=== PATIENT | female | born 1985 ===

== ENCOUNTER 2017-05-30 17:34 | Emergency (ER) | payer OTHER ==
[2017-05-30] MEDS ORDERED: Sodium Chloride 0.9% 1,000 ML IV ONE (18:42)
[2017-05-30 19:21] LABS: BASO # 0.1 K/uL (0.0-0.2); BASO % 0.7 % (0.0-2.0); EOS # 0.1 K/uL (0.0-0.7); EOS % 0.6 % (0.0-4.0); HEMOGLOBIN 12.5 g/dL (11.0-16.0); LYMPH # 2.3 K/uL (1.0-4.3); LYMPH % 19.4 % (20.0-40.0); MEAN CORPUSCULAR HGB CONC 33.3 g/dL (33.0-37.0); MEAN PLATELET VOLUME 8.9 fL (7.2-11.7); MONO # 0.7 K/uL (0.0-0.8); MONO % 5.9 % (0.0-10.0); NEUT # 8.8 K/uL (1.8-7.0); NEUT % 73.4 % (50.0-75.0); RBC 4.3 Mil/uL (3.80-5.20); RED CELL DISTRIBUTION WIDTH 13.2 % (11.5-14.5)
[2017-05-30] MEDS ORDERED: Sodium Chloride 0.9% 1,000 ML ONE (19:21)
[2017-05-30 19:28] LABS: ALBUMIN 4.4 g/dL (3.5-5.0); PROTHROMBIN TIME 11.8 SECONDS (9.7-12.2)
[2017-05-30 19:31] LABS: AST/SGOT 19 U/L (14-36); GFR AFRICAN-AMERICAN > 60; GFR NON-AFRICAN AMERICAN > 60
[2017-05-30 19:32] LABS: ALB/GLOB RATIO 1.2 (1.0-2.1); ALT/SGPT 32 U/L (9-52); BLOOD UREA NITROGEN 12 mg/dL (7-17); CALCIUM 9.3 mg/dl (8.6-10.4); LIPASE 40 U/L (23-300)
[2017-05-30 19:46] LABS: HCG,QUALITATIVE URINE NEGATIVE (NEGATIVE)
[2017-05-30 19:47] LABS: SQUAMOUS EPITHIAL 1 /hpf (0-5); URINE BILIRUBIN NEGATIVE (NEGATIVE); URINE BLOOD NEGATIVE (NEGATIVE); URINE CLARITY Clear (Clear); URINE COLOR Yellow (YELLOW); URINE GLUCOSE (UA) NORMAL (Normal); URINE LEUKOCYTE ESTERASE NEG Leu/uL (Negative); URINE NITRATE NEGATIVE (NEGATIVE); URINE PROTEIN NEGATIVE (NEGATIVE); URINE UROBILINOGEN NORMAL mg/dL (0.2-1.0)
[2017-05-30 20:09] VITALS: BP 93/62; PULSE 82; RESP 18; TEMP 98.3; O2SAT 100
--- NOTE | 2017-05-30 21:00 | C.PDOC ---
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 Limitations: language barrier Onset/Duration Of Symptoms: Other (today) Current Symptoms Are (Timing): Better Number Of Bleeding Episodes: One Amount of Blood Loss: Small Severity: Moderate Quality Of Discomfort: "Pain" Associated Symptoms: Hematemesis (x1) Modifying Factors: None Additional History Per: Prior Records Past Medical History Reviewed: Historical Data, Nursing Documentation, Vital Signs Vital Signs: Last Vital Signs Temp 98.3 F 05/30/17 20:08 Pulse 82 05/30/17 20:08 Resp 18 05/30/17 20:08 BP 93/62 L 05/30/17 20:08 Pulse Ox 100 05/30/17 20:08 - Medical History PMH: Gastritis Surgical History: No Surg Hx Family History: States: Unknown Family Hx - Social History Hx Alcohol Use: Yes Hx Substance Use: No - Immunization History Hx Tetanus Toxoid Vaccination: No Hx Influenza Vaccination: Yes Hx Pneumococcal Vaccination: No Review Of Systems Except As Marked, All Systems Reviewed And Found Negative. Constitutional: Negative for: Fever, Weakness Cardiovascular: Negative for: Chest Pain, Light Headedness Respiratory: Negative for: Shortness of Breath Gastrointestinal: Positive for: Abdominal Pain (epigastric, for about 1 week). Negative for: Diarrhea Musculoskeletal: Negative for: Neck Pain Skin: Negative for: Rash Neurological: Negative for: Weakness, Numbness, Seizures, Altered Mental Status Physical Exam - Physical Exam Appears: Non-toxic, No Acute Distress Skin: Normal Color, Warm, Dry, No Rash Head: Atraumatic, Normacephalic Eye(s): bilateral: Normal Inspection, PERRL, EOMI Oral Mucosa: Moist Neck: Normal ROM, Supple Cardiovascular: Rhythm Regular Respiratory: Normal Breath Sounds, No Accessory Muscle Use Gastrointestinal/Abdominal: Soft, Tenderness (mild epigastric), No Guarding, No Rebound Rectal: Rectal Tone (wnl), Heme Positive, No Mass, Other (brown stool) Back: No CVA Tenderness Extremity: Normal ROM Neurological/Psych: Oriented x3, Normal Motor, Normal Sensation ED Course And Treatment - Laboratory Results Result Diagrams: 05/30/17 19:18 05/30/17 19:18 Lab Interpretation: No Acute Changes Urine POC: Negative O2 Sat by Pulse Oximetry: 100 Pulse Ox Interpretation: Normal Progress Note: Pt is feeling much better. No abdominal pain. Pt states she has a [facility] to follow up with. Reassessment Condition: Improved Progress - Interventions Interventions:: Observation, Intravenous fluid - Medications Administered Intravenous: Antiemetic, Other (PPI) - Data Reviewed Data Reviewed: Lab, Old records - Patient Status Patient status: Mostly improved - Continuity of Care Discussed patient case with:: Patient, ED Nurse - Patient Plan Patient Plan: Discharge, F/U with PCP Disposition Counseled Patient/Family Regarding: Studies Performed, Diagnosis, Need For Followup, Rx Given - Disposition Disposition: HOME/ ROUTINE Disposition Time: 21:02 Condition: IMPROVED Additional Instructions: Follow up with your [facility] within 1 week for further evaluation and treatment, including an upper endoscopy. Return to the ER if you vomit blood, develop black or bloody stool, dizziness, worsening of symptoms or if you have any other concerns. Prescriptions: Pantoprazole Sodium [Protonix] 40 mg PO DAILY #14 ect Instructions: Gastritis (ED), Diet for Ulcers and Gastritis (ED) Print Language: MALAWIAN - Clinical Impression Clinical Impression: Abdominal pain, History of hematemesis
== END 2017-05-30 21:24 | disposition home or self-care (01) ==
LOC: C.ER 17:34
DX: R10.13 Epigastric pain (principal); Z87.898 Personal history of other specified conditions
CPT/HCPCS: 80053; 81001; 83690; 84703; 85025; 85610; 85730; 96361; 96374; 96375; 99285; C9113; G0328; J2765; J7040

== ENCOUNTER 2017-06-10 14:42 | Emergency (ER) | payer OTHER ==
[2017-06-10 14:52] VITALS: PULSE 77; RESP 20
[2017-06-10] MEDS ORDERED: Sodium Chloride 0.9% 500 ML IV ONE ×2 (15:36→15:49)
--- NOTE | 2017-06-10 15:41 | C.PDOC ---
History Of Present Illness 32 y/o female presents to emergency department for reevaluation of epigastric pain x1 week. Pain is intermittent, localized and worse with food intake. Pt seen here 1 week ago for same, prescribed medication but patient states the medication nut tapper her a headache. Pt denies fever, chills, worse headache of life , dizziness, CP, SOB, dyspnea, palpitation, vomiting, hematemesis, diarrhea, urinary symptoms or any other complaints. Pt admits, has scheduled GI appointment for 08/2017. Time Seen by Provider: 06/10/17 15:27 Chief Complaint (Nursing): Abdominal Pain History Per: Patient History/Exam Limitations: no limitations Onset/Duration Of Symptoms: Days Current Symptoms Are (Timing): Still Present Severity: Moderate Location Of Pain/Discomfort: Epigastric Radiation Of Pain To:: None Quality Of Discomfort: "Pain" Associated Symptoms: denies: Fever, Chills, Nausea, Vomiting, Diarrhea, Chest Pain, Urinary Symptoms Exacerbating Factors: Food Recent travel outside of the [place]: No Past Medical History Reviewed: Historical Data, Nursing Documentation, Vital Signs Vital Signs: Last Vital Signs Temp 98.7 F 06/10/17 17:33 Pulse 77 06/10/17 17:33 Resp 20 06/10/17 17:33 BP 100/67 06/10/17 17:33 Pulse Ox 98 06/10/17 17:42 - Medical History PMH: Gastritis Family History: States: Unknown Family Hx - Social History Hx Alcohol Use: Yes Hx Substance Use: No - Immunization History Hx Tetanus Toxoid Vaccination: No Hx Influenza Vaccination: Yes Hx Pneumococcal Vaccination: No Review Of Systems Except As Marked, All Systems Reviewed And Found Negative. Constitutional: Negative for: Fever, Chills Cardiovascular: Negative for: Chest Pain Respiratory: Negative for: Shortness of Breath Gastrointestinal: Positive for: Abdominal Pain. Negative for: Nausea, Vomiting , Diarrhea Genitourinary: Negative for: Dysuria, Hematuria Musculoskeletal: Negative for: Back Pain Physical Exam - Physical Exam Appears: Well, Non-toxic, No Acute Distress Skin: Warm, Dry, No Rash Eye(s): bilateral: PERRL Nose: No Flaring Oral Mucosa: Moist, No Drooling Throat: No Erythema, No Drooling Neck: Supple, Other ((-) carotid bruits) Cardiovascular: Rhythm Regular, No Friction Rub, No Murmur, No JVD Respiratory: No Decreased Breath Sounds, No Accessory Muscle Use, No Rales, No Rhonchi, No Stridor, No Wheezing Gastrointestinal/Abdominal: Soft, Tenderness (mild epigastric/RUQ), No Guarding , No Rebound Extremity: Normal ROM, No Pedal Edema Extremity: Bilateral: Atraumatic Neurological/Psych: Oriented x3, Normal Speech, Normal Cognition ED Course And Treatment - Laboratory Results Result Diagrams: 06/10/17 15:48 06/10/17 15:48 Lab Interpretation: No Acute Changes O2 Sat by Pulse Oximetry: 98 (room air) Pulse Ox Interpretation: Normal - CT Scan/US Gallbladder US Other Rad Studies (CT/US): Radiology Report Reviewed CT/US Interpretation: Accession No. : [id number]. Patient Name / ID : JANES LERMA / [id number]. Exam Date : 06/10/2017 16:44:34 ( Approved ) . Study Comment : Sex / Age : F / 32Y. Creator : Brie Lopez MD. 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 Approver2 : Report Date : 06/10/2017 17:20:41. My Comment : . HISTORY: RUQ pain. COMPARISON: None available. TECHNIQUE: Sonographic evaluation of the right upper quadrant of the abdomen. FINDINGS: LIVER: Measures 17.3 cm in length. Echogenic 3.4 x 3.1 x 3.1 cm lesion, indeterminate. The main portal vein appears patent with normal directional flow. No intrahepatic bile duct dilatation. GALLBLADDER: No gallstones. No gallbladder wall thickening or pericholecystic edema. Negative sonographic Gardner's sign as assessed by the match maker. COMMON BILE DUCT: Measures 3 mm. PANCREAS: Not well- visualized. RIGHT KIDNEY: Measures 11.0 x 3.8 x 4.8 cm. No obstructing calculus or hydronephrosis identified. AORTA: Limited visualization appears grossly unremarkable. IVC: Limited visualization appears grossly unremarkable. OTHER FINDINGS: None . IMPRESSION: Indeterminate 3.4 x 3.1 x 3.1 cm echogenic hepatic lesion, right lobe. Recommend dedicated cross- sectional imaging for further characterization. Progress Note: Plan: labs, US gallbladder, IV fluids, pepcid, carafate. On re- evaluation, pt is afebrile, hemodynamicaly stable. non-toxic. PulseOx 98% rA. ENT: no acute findings. Neck: Supple. CVS: (+)S1S2, reg. Lungs: CTA B/L, BS equal B/L. Abd: benign, (-) guarding, (-) rebound. back: (-) CVA tenderness. Blood work, UA- noraml. Imaging results review and accidental findings noted. results review and discussed with pt. ref. to fu with GI in 1- 2 days for re-eavl. return to Ed if any worsening or new changes. Disposition Counseled Patient/Family Regarding: Studies Performed, Diagnosis, Need For Followup, Rx Given - Disposition Referrals: [facility] [Outside] [facility] [Outside] Shivam Lomeli MD [Staff Provider] - Disposition: HOME/ ROUTINE Disposition Time: 17:25 Condition: STABLE Additional Instructions: Follow up with GI in 2-3days for re-evacuation. Diet restriction return to ED if any worsening or new changes. 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 - Scribe Statement The provider has reviewed the documentation as recorded by the Scribe Ramsey Castañeda All medical record entries made by the Maikel were at my direction and personally dictated by me. I have reviewed the chart and agree that the record accurately reflects my personal performance of the history, physical exam, medical decision making, and the department course for this patient. I have also personally directed, reviewed, and agree with the discharge instructions and disposition.
[2017-06-10 15:53] LABS: BASO # 0.1 K/uL (0.0-0.2); BASO % 0.7 % (0.0-2.0); EOS # 0.1 K/uL (0.0-0.7); EOS % 1.1 % (0.0-4.0); HEMOGLOBIN 12.1 g/dL (11.0-16.0); LYMPH # 2.7 K/uL (1.0-4.3); MEAN CELL VOLUME 87.2 fL (81.0-99.0); MEAN CORPUSCULAR HEMOGLOBIN 29.5 pg (27.0-31.0); MEAN CORPUSCULAR HGB CONC 33.8 g/dL (33.0-37.0); MEAN PLATELET VOLUME 8.9 fL (7.2-11.7); MONO # 0.6 K/uL (0.0-0.8); MONO % 6.7 % (0.0-10.0); NEUT # 4.9 K/uL (1.8-7.0); NEUT % 59.5 % (50.0-75.0); RBC 4.09 Mil/uL (3.80-5.20); RED CELL DISTRIBUTION WIDTH 13.3 % (11.5-14.5); WHITE BLOOD COUNT 8.3 K/uL (4.8-10.8)
[2017-06-10 16:08] LABS: HCG,QUALITATIVE URINE NEGATIVE (NEGATIVE)
[2017-06-10 16:15] LABS: ALBUMIN 4.1 g/dL (3.5-5.0)
[2017-06-10 16:17] LABS: SQUAMOUS EPITHIAL 3 /hpf (0-5); URINE BILIRUBIN NEGATIVE (NEGATIVE); URINE BLOOD NEGATIVE (NEGATIVE); URINE CLARITY Clear (Clear); URINE COLOR Yellow (YELLOW); URINE GLUCOSE (UA) NORMAL (Normal); URINE LEUKOCYTE ESTERASE NEG Leu/uL (Negative); URINE NITRATE NEGATIVE (NEGATIVE); URINE PROTEIN NEGATIVE (NEGATIVE); URINE UROBILINOGEN NORMAL mg/dL (0.2-1.0)
[2017-06-10 16:18] LABS: ALB/GLOB RATIO 1.3 (1.0-2.1); ALT/SGPT 37 U/L (9-52); AST/SGOT 23 U/L (14-36); BLOOD UREA NITROGEN 10 mg/dL (7-17); CALCIUM 8.5 mg/dl (8.6-10.4); GFR AFRICAN-AMERICAN > 60; GFR NON-AFRICAN AMERICAN > 60; LIPASE 31 U/L (23-300)
--- NOTE | 2017-06-10 17:22 | US ---
HISTORY: RUQ pain COMPARISON: None available TECHNIQUE: Sonographic evaluation of the right upper quadrant of the abdomen. FINDINGS: LIVER: Measures 17.3 cm in length. Echogenic 3.4 x 3.1 x 3.1 cm lesion, indeterminate. The main portal vein appears patent with normal directional flow. No intrahepatic bile duct dilatation. GALLBLADDER: No gallstones. No gallbladder wall thickening or pericholecystic edema. Negative sonographic Gardner's sign as assessed by the first aid officer. COMMON BILE DUCT: Measures 3 mm. PANCREAS: Not well-visualized. RIGHT KIDNEY: Measures 11.0 x 3.8 x 4.8 cm. No obstructing calculus or hydronephrosis identified. AORTA: Limited visualization appears grossly unremarkable. IVC: Limited visualization appears grossly unremarkable. OTHER FINDINGS: None . IMPRESSION: Indeterminate 3.4 x 3.1 x 3.1 cm echogenic hepatic lesion, right lobe. Recommend dedicated cross-sectional imaging for further characterization.
[2017-06-10 17:33] VITALS: BP 100/67; TEMP 98.7
[2017-06-10 17:42] VITALS: O2SAT 98
== END 2017-06-10 18:06 | disposition home or self-care (01) ==
LOC: C.ER 14:42
DX: R10.13 Epigastric pain (principal)
CPT/HCPCS: 76705; 80053; 81001; 83690; 84703; 85025; 96361; 96374; 99285; J7040